=== PATIENT | female | born 1945 | race Caucasian/White ===

== ENCOUNTER → 2016-10-18 | Day surgery (SDC) | payer MEDICARE ==
[~2016-10-18] VITALS: Ht 154.9 cm; Wt 54.6 kg
[~2016-10-18] MED LIST: AMIT24CA5 PO; ATOR20TA15 PO; BUPIVACAINE/EPINEPHRINE 0.5% PF 30 ML VIAL INFIL ONE; CYAN1TAB24 PO; FAMOTIDINE 20 MG/2 ML VIAL ONE; HEPARIN SODIUM - IV 10,000 UNITS/10 ML VIAL ONE; HEPARIN SODIUM - SQ 10,000 UNITS/ML VIAL ONE; HYDR-3801 PO; Hemodialysis Vas Acc Cath PRN Heparin 1000 unit/ml Flush IVF; Hemodialysis Vas Access Cath PRN NS Lock Flush IVF; INSULIN HUMAN REGULAR 1,000 UNITS/10 ML VIAL SQ PRN; ISOS20TA2 PO; Infusaport/Implanted VAD PRN NS Lock Flush IVF; KETAMINE HCL 500 MG/5 ML VIAL ONE; LACTATED RINGER'S 1000 ML IV SCH; LOSA100T PO; METOPROLOL TARTRATE 25 MG TAB PO PRN; MIDAZOLAM HCL 2 MG/2 ML VIAL ONE; MIRTA15 PO; MULTCAP2 PO; NIFE1TAB PO; PROPOFOL 200 MG/20 ML AMP IV ONE; PROTAMINE SULFATE 50 MG/5 ML VIAL ONE; SERT-129 PO; SODIUM CHLORID 0.9% 500 ML IV SCH; ceFAZolin 1,000 MG/NS 100 ML IV SCH
[2016-10-18 07:23] VITALS: BP 181/99; PULSE 89; RESP 20; TEMP 97.8; O2SAT 100
[2016-10-18 08:06] LABS: AUTOMATED NEUTROPHIL # 5.2 TH/MM3 (1.8-7.7); BASOPHIL # 0.1 TH/MM3 (0-0.2); BASOPHIL % 1.8 % (0.0-2.0); EOSINOPHIL # 0.2 TH/MM3 (0-0.4); EOSINOPHIL % 3.4 % (0.0-4.0); HEMATOCRIT 33.4 % (35.0-46.0); HEMO FLAGS DIFF FINAL; LYMPH % 18.1 % (9.0-44.0); LYMPHOCYTE # 1.3 TH/MM3 (1.0-4.8); MEAN CELL VOLUME 82.8 FL (80.0-100.0); MEAN CORPUSCULAR HEMOGLOBIN 26.9 PG (27.0-34.0); MEAN CORPUSCULAR HGB CONC 32.5 % (32.0-36.0); MONO % 5.1 % (0.0-8.0); NEUT % 71.6 % (16.0-70.0); PLATELET COUNT 236 TH/MM3 (150-450); RED BLOOD COUNT 4.04 MIL/MM3 (4.00-5.30); RED CELL DISTRIBUTION WIDTH 16.1 % (11.6-17.2); WHITE BLOOD COUNT 7.3 TH/MM3 (4.0-11.0)
[2016-10-18 08:18] LABS: BICARBONATE 22.5 MEQ/L (21.0-32.0); POTASSIUM 3.6 MEQ/L (3.5-5.1)
[2016-10-18 11:04] VITALS: BP 184/89; PULSE 76; RESP 20; TEMP 97.7; O2SAT 96
--- NOTE | 2016-10-18 16:37 | EKG ---
Date Performed: 10/18/2016 Time Performed: 06:53:29 PTAGE: 71 years EKG: Sinus rhythm NONSPECIFIC T-WAVE ABNORMALITY BORDERLINE ECG NO PREVIOUS TRACING DOCTOR: Mandy Casillas Interpretating Date/Time 10/18/2016 16:34:23
--- NOTE | 2016-10-23 14:34 | MP ---
cc: MASON BECERRIL M.D., [facility] DATE OF SURGERY: 10/18/2016 PREOPERATIVE DIAGNOSIS Chronic kidney disease--needs permanent hemodialysis access. POSTOPERATIVE DIAGNOSIS Chronic kidney disease--needs permanent hemodialysis access. PROCEDURE Right brachial-cephalic AV fistula creation. SURGEON Mason Becerril ASTROPHYSICS PROFESSOR CRISTIAN Valdes ANESTHESIA Local MAC. DESCRIPTION OF OPERATIVE PROCEDURE With the patient in the supine position and under IV sedation the right arm was prepped with Betadine and draped in a sterile fashion. Following a protocol timeout, the skin and subcutaneous tissue surrounding the right medial supra antecubital area was preemptively infiltrated with 0.5% Marcaine with epinephrine. A curvilinear 3 cm incision was performed along the medial supra antecubital region through which the cephalic vein and brachial artery were circumferentially mobilized. The vein was ligated distally with 4-0 silk, transected proximal to the ligature, spatulated on end, flushed with heparinized saline and occluded with a Yasargil clip. The artery was occluded proximally and distally with Yasargil clips. A vertical 4 mm arteriotomy was performed along the anterolateral surface. The artery was flushed proximally and distally with heparinized saline. An end-to-side anastomosis was performed between the vein and arteriotomy with continuous 7-0 Prolene. The occluding Yasargil clips were removed reestablishing pulsatile flow within the brachial artery as well as into the cephalic vein. The radial pulse remained easily palpable with normal perfusion within the right hand. Strict hemostasis was assured. The incision was closed with interrupted subcuticular 4-0 Monocryl, reinforced with Steri-Strips and covered with sterile gauze. Instrument, needle, sponge count correct x2. There were no operative complications. The patient returned to the recovery room in stable condition having tolerated the procedure well. Mason Becerril MD JTS/OSCAR /4:45 PM /2:25 PM
== END | disposition home or self-care (01) ==
LOC: HSDC 05:55
PROVIDERS: ATTEND Surgery Vascular Surgery
DX: N18.6 End stage renal disease (principal); I12.0 Hypertensive chronic kidney disease with stage 5 chronic kidney disease or end stage renal disease; Z99.2 Dependence on renal dialysis
CPT/HCPCS: 01844; 36818; 80048; 85025; 93005; J0690; J1642; J1644; J2250; J3010; J7120; J2720